=== PATIENT | male | born 1975 | race Caucasian/White ===

== ENCOUNTER 2021-06-28 11:02 | Emergency (ER) | payer BC ==
[~2021-06-28] VITALS: Ht 170.2 cm; Wt 90.7 kg
[2021-06-28] MEDS ORDERED: PREDNISONE20 MG PO (13:13)
[2021-06-28] MEDS ORDERED: ZITHROMAX250 MG PO (13:13)
--- NOTE | 2021-06-28 16:58 | EKG ---
[facility] [address] [facility] [place], [place] [address] Signed Normal sinus rhythm Normal ECG No previous ECGs available Confirmed by SANG MIKE DO ([id number]) on 06/28/2021 4:58:07 PM Electronically Signed By: SANG MIKE DO 06/28/21 1658 PATIENT NAME: JEREMY GODINEZ Kimberly Electrocardiogram DATE OF : 77 PHYSICIAN: SANG MIKE DO REPORT #: [id number] REPORT IS CONFIDENTIAL AND NOT TO BE RELEASED WITHOUT AUTHORIZATION
== END 2021-06-28 13:30 | disposition home or self-care (01) ==
LOC: ED 11:02
DX: J44.1 Chronic obstructive pulmonary disease with (acute) exacerbation (principal); J44.0 Chronic obstructive pulmonary disease with (acute) lower respiratory infection; J20.8 Acute bronchitis due to other specified organisms; Z20.822 Contact with and (suspected) exposure to COVID-19
CPT/HCPCS: 71045; 80053; 83735; 84484; 85025; 93005; 93010; 94640; 94664; 99284-25; 99406; C9803; U0003

== ENCOUNTER 2024-01-10 06:53 | Emergency (ER) | payer BC ==
[~2024-01-10] VITALS: Ht 170.2 cm; Wt 87.1 kg
[~2024-01-10 06:53] MED LIST: PREDNISONE20 MG PO; ZITHROMAX250 MG PO
[2024-01-10 07:56] LABS: BASOPHILS 0.6 % (0-2); EOSINOPHILS 0.9 % (0-6); HEMATOCRIT 49.1 % (35.0-50.0); HEMOGLOBIN 16.7 g/dL (12.0-18.0); LYMPHOCYTES 5.7 % (24-44); MCH 32.9 (27-36); MCV 96.8 fl (81-99); MONOCYTES 7.7 % (0-12); NEUTROPHILS 85.1 % (39-80); PLATELET COUNT 261 K/uL (140-440); RBC 5.07 M/ul (4.3-5.7); RDW 14.6 (10.5-15.0)
[2024-01-10 08:11] LABS: ALBUMIN 3.5 g/dL (3.4-5.0); ALBUMIN/GLOBULIN RATIO 0.95 (1.1-2.4); BILIRUBIN, TOTAL 0.4 ng/dL (0.2-1.0); BUN/CREATININE RATIO 13.33 (6.0-28.6); CALCIUM 8.6 mg/dL (8.5-10.1); CREATININE, SERUM 0.9 mg/dL (0.70-1.30); PROTEIN, TOTAL 7.2 g/dL (6.4-8.2)
[2024-01-10 08:36] LABS: BILIRUBIN, URINE POSITIVE (negative); BLOOD/HGB, URINE NEGATIVE (Negative); KETONE, URINE SMALL (Negative); LEUK ESTERASE, URINE NEGATIVE (negative); NITRITE, URINE NEGATIVE (negative); PH, URINE 5.5 (5-7)
[2024-01-10 09:16] LABS: ABO O; ANTIBODY SCREEN NEGATIVE; RH POSITIVE
[2024-01-10] MEDS ORDERED: SODIUM CHLORIDE 0.9% 1,000 ML IV PRN (10:15)
[2024-01-10] MEDS ORDERED: KETOROLAC TROMETHAMINE 30 MG/ML VIAL IV ONE (10:15)
[2024-01-10] MEDS ORDERED: ACETAMINOPHEN 500 MG TAB PO ONE (12:15)
--- NOTE | 2024-01-12 12:16 | CONS ---
[facility] [address] [place], [place] [address] Signed DATE OF CONSULTATION: 01/10/2024 TIME: 12:50 p.m. PROBLEM: Left lower abdominal pain, incidental findings of large right inguinal hernia, left inguinal hernia and questionable cecal mass. 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 He lives with his daughter, who has recently left the home. He presented to the emergency room with complaints of left lower abdominal pain. He was evaluated by Dr. Willard and the evaluation included CBC and Chem profile, both of which were normal. A CT scan was performed, which showed no evidence of acute diverticulitis as was possibly suspected. He additionally was found to have a rather massive right inguinal hernia and a smaller left inguinal hernia. Notably, small bowel extends into the right hemiscrotum. Additionally, he was found to have questionable filling defect in the cecal area on the right side. It is uncertain if this may represent stool or other finding. I was asked to consult on that basis. PAST MEDICAL HISTORY: Unremarkable as regards abdominal surgery or other issues. He has had right knee surgery that did not include joint replacement. REVIEW OF SYSTEMS: He denies any shortness of breath or chest pain. His left lower abdominal pain has largely resolved. He has had no nausea or vomiting. PHYSICAL EXAMINATION: GENERAL: Pleasant white man who does not look to be in distress at this time. NECK: Trachea is midline. CHEST: Clear. HEART: Regular without murmur. ABDOMEN: Nondistended. There is an impressively large right inguinal hernia extending into the right hemiscrotum. It is not reducible, but it is not tender. Left groin anatomy is obscured by the size of the right-sided scrotal hernia. Abdominal palpation shows no signs of ascites or focal mass or tenderness. EXTREMITIES: Show no clubbing, cyanosis, or edema. White count is normal. He is not anemic. ASSESSMENT: The three issues of note for him at present are the rather large incarcerated right Electronically Signed By: GILES ESCOBAR MD 01/12/24 1216 PATIENT NAME: JEREMY GODINEZ CONSULTATION DATE OF : 77 REPORT #: [id number] PHYSICIAN: GILES ESCOBAR MD PCP: NO PRIMARY CARE PHYSICIAN REPORT IS CONFIDENTIAL AND NOT TO BE RELEASED WITHOUT AUTHORIZATION [facility] [address] [place], [place] [address] Signed inguinal hernia extending into the hemiscrotum. He has no evidence of obstruction and is certainly aware of the hernia and its need for repair. Additionally, the left inguinal hernia which is relatively occult clinically was noted and preserved with tension as well. Concurrent repair of these two hernias would not be generally advisable. The right-sided hernia is rather significant and would be enough on its own for repair. Additionally, regarding the cecal abnormality, my review of the images does show an unusual appearance. This still may represent stool or other nonneoplastic process. He does prefer to go home, although admission to the hospital and management of any of the aforementioned findings could be undertaken. He will call my office on Saturday. If he should have worsening symptoms of his left lower abdominal pain, which at present are not well explained by any particular findings, he will let us know sooner. Giles Escobar MD JM/MODL /[id number] cc: Giles Willard MD Copies: ~ Electronically Signed By: GILES ESCOBAR MD 01/12/24 1216 PATIENT NAME: JEREMY GODINEZ CONSULTATION DATE OF : 77 REPORT #: [id number] PHYSICIAN: GILES ESCOBAR MD PCP: NO PRIMARY CARE PHYSICIAN REPORT IS CONFIDENTIAL AND NOT TO BE RELEASED WITHOUT AUTHORIZATION
== END 2024-01-10 13:40 | disposition home or self-care (01) ==
LOC: ED 06:53
PROVIDERS: Emergency Medicine
DX: K52.9 Noninfective gastroenteritis and colitis, unspecified (principal); K63.89 Other specified diseases of intestine
CPT/HCPCS: 36415; 74177; 80053; 81003; 83735; 85025; 86850; 86900; 86901; 96361; 99284-25; A9270; J1885; J7030; Q9967

== ENCOUNTER 2024-04-02 10:58 | Day surgery (SDC) | payer BC ==
[~2024-04-02] VITALS: Ht 170.2 cm; Wt 90.9 kg
[~2024-04-02 10:58] MED LIST changes: +IBLOOD GLUCOSE TEST STRIP 1 EA TEST VI PRN; +LACTATED RINGER'S 1,000 ML IV SCH; +LIDOCAINE HCL 1% 5 ML SDV INJ ONE; +MIDAZOLAM HCL 5 MG/5 ML VIAL IV PRN; +fentaNYL citrate 100 MCG/2 ML VIAL IV PRN
[2024-04-02 11:47] VITALS: BP 165/113
[2024-04-02] MEDS ORDERED: MIDAZOLAM HCL 5 MG/5 ML VIAL ONE (12:42)
[2024-04-02] MEDS ORDERED: fentaNYL citrate 100 MCG/2 ML VIAL ONE (12:42)
--- NOTE | 2024-04-02 13:33 | NUR ---
04/02/24 Lyudmila3 Demetrius Wood 1324: PT ARRIVED TO PACU VIA STRETCHER. PT AWAKE AND TALKING UPON ARRIVAL. PT HAS NO COMPLAINTS OF NAUSEA OR PAIN. 1326: PT TITRATED TO ROOM AIR AT THIS TIME.
[2024-04-02 13:46] VITALS: BP 152/101
--- NOTE | 2024-04-04 09:47 | OR ---
[facility] [address] [place], [place] [address] Signed DATE OF OPERATION: 04/02/2024 SURGEON: Giles Escobar MD PREOPERATIVE DIAGNOSES: 1. Abnormal appearing CT scan (questionable cecal mass). 2. Large right inguinal hernia. POSTOPERATIVE DIAGNOSES: 1. Cecal diverticulosis and scattered diverticula elsewhere. 2. Polyp of sigmoid (excised). PROCEDURE: Total colonoscopy to cecum with cold snare polypectomy x1. ANESTHESIA: Intravenous sedation fentanyl 200 mcg and Versed 10 mg. INDICATION: This 48-year-old white man has no primary care physician. He presented to the emergency room several weeks ago with complaints of abdominal pain. He was found on CT scan to have what was thought to be a filling defect of the cecum consistent with a cecal mass. Consultations undertaken on that basis. He was additionally noted to have a mass of enlarged right inguinal hernia, which no doubt accounts for his symptoms. He is admitted at this time to undergo colonoscopy, anticipating right inguinal hernia repair at the end of April. The patient was incidentally found to have significant hypertension today and will be prescribed lisinopril for management. His blood pressure was well controlled after sedation it is noted. The patient understands the risk of colonoscopy including but not limited to bleeding, infection, and perforation and wished to proceed. FINDINGS: The prep was good. Complete colonoscopy was undertaken of the cecum. Full intubation of the cecum was accomplished. There was no sign of mass of the cecum. He did have extensive diverticular changes of the cecum itself as well as scattered diverticula throughout. He additionally had a polyp in the sigmoid, which was excised with cold snare technique. This was located at 30 cm from the anal verge upon withdrawal of scope. Electronically Signed By: GILES ESCOBAR MD 04/04/24 0947 PATIENT NAME: JEREMY GODINEZ OPERATIVE REPORT DATE OF : 77 REPORT #: [id number] PHYSICIAN: GILES ESCOBAR MD PCP: NO PRIMARY CARE PHYSICIAN REPORT IS CONFIDENTIAL AND NOT TO BE RELEASED WITHOUT AUTHORIZATION [facility] [address] [place], [place] [address] Signed PROCEDURE IN DETAIL: The patient was brought to the endoscopy suite and placed in lateral decubitus position, given intravenous sedation to the point of slurred speech and nystagmus. Full cardiopulmonary monitoring was maintained. His blood pressure went from 181 systolic to 143 systolic with IV sedation. Digital rectal examination was performed, which was normal. An Olympus video colonoscope was passed in the rectum and manipulated throughout the colon. Diverticula were seen throughout the colon, but not intensely involved in any segment particularly. Scope was ultimately advanced to the cecum. There were multiple small diverticula of the cecum itself, but no actual cecal mass. Abdominal wall palpation confirmed the position of the scope in the cecum and visualization of the ileocecal valve was notable as well. The scope was withdrawn from that point and examination throughout showed no sign of abnormality until approximately 30 cm from the anal verge, where an adenomatous appearing sessile polyp was noted. This was excised with cold snare technique and passed for pathology. The mucosal defect was secured with a hemoclip, though there was no significant bleeding otherwise. The scope was further withdrawn. There were no other findings of concern. The patient was taken to the recovery room in good condition. CONCLUDING DIAGNOSES: 1. Polyps x1 at 30 cm, excised. 2. Extensive diverticular disease, particularly at cecum. No evidence of cecal mass. PLAN: We will initiate lisinopril 10 mg daily for blood pressure control method. He will return to the day surgery area in a week or so and have a random blood pressure check at that time. Additionally, surgical intervention for right inguinal hernia is planned for the end of the month. MD TORRIE Wolfe/MODL /[id number] Electronically Signed By: GILES ESCOBAR MD 04/04/24 0947 PATIENT NAME: JEREMY GODINEZ OPERATIVE REPORT DATE OF : [birth year] REPORT #: [id number] PHYSICIAN: GILES ESCOBAR MD PCP: NO PRIMARY CARE PHYSICIAN REPORT IS CONFIDENTIAL AND NOT TO BE RELEASED WITHOUT AUTHORIZATION [facility] [address] [place] [id number] Signed Copies: ~ Electronically Signed By: GILES ESCOBAR MD 04/04/24 0947 PATIENT NAME: JEREMY GODINEZ OPERATIVE REPORT DATE OF : [birth year] REPORT #: [id number] PHYSICIAN: GILES ESCOBAR MD PCP: NO PRIMARY CARE PHYSICIAN REPORT IS CONFIDENTIAL AND NOT TO BE RELEASED WITHOUT AUTHORIZATION
--- NOTE | 2024-04-06 17:01 | PATH ---
[facility] [address] [facility] [place] [place] [address] Signed SPECIMEN(S): A COLON POLYP, 30 CM SPECIMEN SOURCE: A. COLON POLYP, 30 CM CLINICAL HISTORY: bloody stools and abdominal pain FINAL PATHOLOGIC DIAGNOSIS: Colon polyp at 30 cm: - Polypoid colonic mucosa with slight hyperplastic features (two fragments). JVR:clv MICROSCOPIC EXAMINATION: Histologic sections of all submitted blocks are examined by light microscopy. These findings, together with the gross examination, support the pathologic diagnosis. GROSS DESCRIPTION: The specimen, labeled and designated "Hilary, colon polyp at 30 cm," is received in formalin and consists of one jones soft tissue fragment, 1.1 cm. Specimen is bisected and entirely submitted in (A1). JS (under the direct supervision of a pathologist) The Gross Description was prepared using a voice recognition system. The report was reviewed for accuracy; however, sound-alike word errors, addition and/or deletions may occur. If there is any question about this report, please contact Client Services. PERFORMING LABORATORY: Technical component was performed by [facility], [address] [place] [id number] (CLIA# [id number]). Professional interpretation was performed by [facility], [address] [place] [id number] (CLIA#: [id number]). Diagnostician: Sacha Munoz MD Pathologist Electronically Signed 04/06/2024 Copies: PATIENT NAME: JEREMY GODINEZ PATHOLOGY DATE OF : [birth year] REPORT #: [id number] PHYSICIAN: [facility] PCP: NO PRIMARY CARE PHYSICIAN REPORT IS CONFIDENTIAL AND NOT TO BE RELEASED WITHOUT AUTHORIZATION [address] [address] Signed ~ PATIENT NAME: JEREMY GODINEZ PATHOLOGY DATE OF : [birth year] REPORT #: [id number] PHYSICIAN: [facility] PCP: NO PRIMARY CARE PHYSICIAN REPORT IS CONFIDENTIAL AND NOT TO BE RELEASED WITHOUT AUTHORIZATION
== END 2024-04-02 13:55 | disposition home or self-care (01) ==
LOC: DS 10:58 → OPS 10:58 → DS 11:00 → OPS 12:00
PROVIDERS: ATTEND Surgery
PROC: 0DBE8ZX Excision of Large Intestine, Via Natural or Artificial Opening Endoscopic, Diagnostic (ICD-10-PCS; principal; 2024-04-02 12:00)
DX: K63.5 Polyp of colon (principal); K57.30 Diverticulosis of large intestine without perforation or abscess without bleeding; F17.210 Nicotine dependence, cigarettes, uncomplicated; K44.9 Diaphragmatic hernia without obstruction or gangrene
CPT/HCPCS: 99153; G0500; J2250; J3010; J7121

== ENCOUNTER 2024-04-23 05:55 | Day surgery (SDC) | payer BC ==
[2024-04-02 12:28] VITALS: BP 165/113
[~2024-04-23] VITALS: Ht 170.2 cm; Wt 90.9 kg
[~2024-04-23 05:55] MED LIST changes: -IBLOOD GLUCOSE TEST STRIP 1 EA TEST VI PRN; -LIDOCAINE HCL 1% 5 ML SDV INJ ONE; -MIDAZOLAM HCL 5 MG/5 ML VIAL IV PRN; -fentaNYL citrate 100 MCG/2 ML VIAL IV PRN
[2024-04-23 06:07] VITALS: BP 123/91
[2024-04-23] MEDS ORDERED: LISINOPRIL10 MG PO (06:15)
[2024-04-23] MEDS ORDERED: BUPIVACAINE HCL 0.25% 30 ML SDV ONE (06:48)
[2024-04-23] MEDS ORDERED: HEParin SOD (PORCINE) 5,000 UNIT/0.5 ML SYR SUB-Q SCH (07:00)
[2024-04-23] MEDS ORDERED: IBLOOD GLUCOSE TEST STRIP 1 EA TEST VI PRN ×2 (07:00→08:30)
[2024-04-23] MEDS ORDERED: LIDOCAINE HCL 1% 5 ML SDV INJ ONE (07:00)
[2024-04-23] MEDS ORDERED: CEFAZOLIN SODIUM 2 GM/20 ML SYR IV SCH (07:00)
[2024-04-23] MEDS ORDERED: propofoL 200 MG/20 ML VIAL ONE (07:13)
[2024-04-23] MEDS ORDERED: Ropivacaine HCl 0.5% 30 ML VIAL ONE (07:13)
[2024-04-23] MEDS ORDERED: ondansetron HCL 4 MG/2 ML VIAL ONE (07:13)
[2024-04-23] MEDS ORDERED: MIDAZOLAM HCL 2 MG/2 ML VIAL ONE (07:13)
[2024-04-23] MEDS ORDERED: LIDOCAINE HCL 2% 20 MG/ML VIAL INJ ONE ×2 (07:13→11:03)
[2024-04-23] MEDS ORDERED: DEXAMETHASONE SOD PHOS 4 MG/ML VIAL ONE ×3 (07:13→11:01)
[2024-04-23] MEDS ORDERED: fentaNYL citrate 100 MCG/2 ML VIAL ONE ×2 (07:13→13:00)
[2024-04-23] MEDS ORDERED: ACETAMINOPHEN 1,000 MG/100 ML VIAL ONE (07:13)
[2024-04-23] MEDS ORDERED: dexmedeTOMIDine HCl 200 MCG/2 ML VIAL ONE ×2 (07:14→11:30)
[2024-04-23] MEDS ORDERED: ROCURONIUM BROMIDE 50 MG/5 ML SYR ONE ×2 (07:41→08:39)
[2024-04-23] MEDS ORDERED: SUGAMMADEX SODIUM 200 MG/2 ML ML ONE (07:41)
[2024-04-23] MEDS ORDERED: ePHEDrine sulfate 50 MG/ML AMP ONE (08:25)
[2024-04-23] MEDS ORDERED: HYDROmorphone HCL 1 MG/ML SYR IV PRN (08:30)
[2024-04-23] MEDS ORDERED: fentaNYL citrate 50 MCG/ML SDV IV PRN (08:30)
[2024-04-23] MEDS ORDERED: PROCHLORPERAZINE EDISYLATE 10 MG/2 ML VIAL IV PRN (08:30)
[2024-04-23] MEDS ORDERED: ondansetron HCL 4 MG/2 ML VIAL IV PRN (08:30)
[2024-04-23] MEDS ORDERED: NALOXONE HCL 0.4 MG SYR IV PRN ×2 (08:30→10:30)
[2024-04-23] MEDS ORDERED: droPERidol 5 MG/2 ML VIAL IV PRN (08:30)
[2024-04-23] MEDS ORDERED: LACTATED RINGER'S 1,000 ML IV ONE ×2 (08:44→11:43)
[2024-04-23] MEDS ORDERED: IBUPROFEN 600 MG TAB PO PRN (10:30)
[2024-04-23] MEDS ORDERED: ACETAMINOPHEN 500 MG TAB PO PRN (10:30)
[2024-04-23] MEDS ORDERED: OXYCODONE/APAP 7.5/325 TAB PO PRN (10:30)
[2024-04-23] MEDS ORDERED: LACTATED RINGER'S 1,000 ML IV SCH (10:30)
[2024-04-23] MEDS ORDERED: TYLENOL EXTRA500 MG PO (10:31)
[2024-04-23] MEDS ORDERED: MOTRIN IB200 MG PO (10:32)
[2024-04-23] MEDS ORDERED: PERCOCET 7.5-31 EACH PO (10:32)
[2024-04-23] MEDS ORDERED: KETOROLAC TROMETHAMINE 30 MG/ML VIAL IV ONE (10:45)
[2024-04-23] MEDS ORDERED: KETAMINE in NS 50 MG/5 ML SYR ONE (11:04)
[2024-04-23 11:08] VITALS: BP 160/92
--- NOTE | 2024-04-23 11:18 | NUR ---
1110 PT ARRIVED TO DAY SONNY LEWIS FROM PACU. REPORT TAKEN FROM CHELSEY Chamberlain RN. PT AWAKE AND ORIENTED. PT REPORTS NO NAUSEA, 3/10 TOLERABLE PAIN. PT HAS PILI DRAIN ON ABDOMEN. PT DRINKING WATER AND TOLERATING WELL. VITALS TAKEN. IV ASSESSED. PT ON 2L OXYGEN VIA NASAL CANULLA 1119 PT TOLERATING PO PUDDING WELL. PT HAS CALL LIGHT WITHIN REACH, AND BED LOW AND LOCKED.
--- NOTE | 2024-04-23 11:25 | NUR ---
04/23/24 1125 Sheets,Caryl 1002 PT ARRIVED TO PACU ON 6L VIA MASK AND ORAL AIRWAY IN PLACE.
[2024-04-23] MEDS ORDERED: KETOROLAC TROMETHAMINE 30 MG/ML VIAL ONE (11:37)
--- NOTE | 2024-04-23 11:37 | NUR ---
1134 PT RESTING AT 97% OXYGEN SATURATION. OXYGEN LOWERED TO 1 LPM VIA NASAL CANULLA. PT STAYING AT 97%. CONTINOUS PLUSE OX LEFT IN PLACE.
--- NOTE | 2024-04-23 11:59 | NUR ---
1158 PT AT 96% ON 1 L OXYGEN VIA NASAL CANULLA. REMOVED PT OF OF OXYGEN AND PT AT 98% OXYGEN SATURATION ON RA. CONTINOUS PLUSE OX IN PLACE TO MONITOR.
[2024-04-23 12:06] VITALS: BP 171/89
--- NOTE | 2024-04-23 12:47 | NUR ---
1150 PT ABLE TO AMBULATE TO BATHROOM AND VOID 400 MLS URINE. 1200 PT DISCHARGE INFORMATION GONE OVER WITH PT. PT HAS NO FURTHER QUESTIONS AT THIS TIME. VITALS TAKEN. PT ABLE TO GET DRESSED ON OWN. 1220 IV DISCONTINUED 1225 PT DISCHARGED FROM [facility] VIA WHEELCHAIR TO THE FRONT OF THE HOSPITAL TO PT DAUGHTERS CAR.
--- NOTE | 2024-04-24 12:44 | OR ---
[facility] [address] [place], [place] [address] Signed DATE OF OPERATION: 04/23/2024 SURGEON: Giles Escobar MD PREOPERATIVE DIAGNOSIS: Incarcerated non-strangulated right inguinal hernia (very large). POSTOPERATIVE DIAGNOSES: 1. Incarcerated non-strangulated right inguinal hernia (very large). 2. Incarcerated viscus essentially all of omentum and small amount of small bowel. PROCEDURES: 1. Repair of incarcerated non-strangulated right inguinal hernia (indirect type), prolonged, complicated and difficult. 2. Implantation of Prolene mesh underlay technique and placement of drain. ANESTHESIA: General endotracheal, Frankie Fuller [employer] and local 10 mL of 0.25% Marcaine with epinephrine as well as preoperative inguinal nerve block. INDICATION: This 48-year-old white man has no primary care physician. He presented to the emergency room with abdominal pain on January 10, 2024, where he was evaluated by Dr. Willard. A CT scan was performed, which showed questionable filling defect in the cecum, but also a very large nonreducible right inguinal hernia and on CT scan a small left inguinal hernia, which was containing fat only. Right inguinal hernia contained some bowel loops. The patient has had no sign of bowel obstruction per se. The patient did undergo colonoscopy by nd which showed no evidence of cecal tumor. No doubt the CT scan was an error and probably had visualized only retained stool. The right inguinal hernia that he has was quite massive and extends well into the right hemiscrotum. It is not reducible. He is here now to undergo repair of the hernia. He understands the risk of bleeding, infection, recurrent nerve injury or defect and need for possible abdominal or scrotal evaluation also. Understanding this, he wished to proceed. FINDINGS: Given the large size of the hernia, a Boyle catheter was anticipated. Given the size of his urethral meatus, a much smaller catheter (10-Algerian) was passed, however, the urine Electronically Signed By: GILES ESCOBAR MD 04/24/24 1244 PATIENT NAME: JEREMY GODINEZ OPERATIVE REPORT DATE OF : [birth year] REPORT #: [id number] PHYSICIAN: GILES ESCOBAR MD PCP: NO PRIMARY CARE PHYSICIAN REPORT IS CONFIDENTIAL AND NOT TO BE RELEASED WITHOUT AUTHORIZATION [facility] [address] [place], [place] [address] Signed was not forthcoming upon passage of the catheter despite it being fully inserted. On that basis, it was abandoned. As regard to the hernia, it was completely nonreducible and extended well into the right hemiscrotum. He was ultimately found to have herniated omentum extended down into the hemiscrotum with adherent adhesions to the hernia sac distally. There was a small amount of small bowel as well. The hernia sac itself was not excessively large only 6 cm or so. The neck was about 3 cm in diameter. The floor itself was somewhat attenuated. Repair consisted of isolation of the hernia sac, omentum and small bowel to the peritoneal cavity. High ligation and excision of the hernia sac and implantation of Prolene mesh in an underlay technique. Of special note, a genitofemoral nerve in the floor of the canal was identified and was intentionally excised as the position of the nerve could not be more fully manipulated to a better position to allow a reasonable repair of the hernia. An ilioinguinal nerve branch was identified. Notably adherent to the external oblique fascia externally, ultimately fused with cremasteric muscle fibers. By conclusion complete reduction of the hernia was accomplished as well as repair of the floor. A drain was placed given the extent of dissection and hazard of possible bleeding particularly given extensive mobilization from the scrotum. DESCRIPTION OF PROCEDURE: The patient was brought to the operating room and given a general endotracheal anesthetic. Preoperative antibiotic Ancef was given. Sequential compression device stockings were used and heparin subcutaneously administered. The abdomen was clipped. A nurse attempt at passage of a conventional Boyle catheter was unsuccessful due to small size of urethral meatus. On that basis, I personally attempted passage of a 14-Algerian Boyle catheter, which again was still too large for the urethral meatus size, though there was no distinct scarring or stricture noted. On that basis, a 10-Algerian pediatric catheter was passed without impediment and passed fully would likely be the bladder itself. The urine was not forthcoming despite abdominal palpation of the suprapubic area. The balloon was filled with about 1 mL, but did not engage into the bladder itself and it was replaced by me personally, which appeared to be likely into appropriate position, but still no urine was withdrawn. Under the circumstances, the catheter was removed and a Boyle catheter was not used during the course of operation. The abdomen was then prepared with chlorhexidine solution and draped sterilely. A very large scrotal hernia was not reducible even with relaxation. The scrotum and surrounding area had been prepped during the preparation phase. Electronically Signed By: GILES ESCOBAR MD 04/24/24 1244 PATIENT NAME: JEREMY GODINEZ OPERATIVE REPORT DATE OF : [birth year] REPORT #: [id number] PHYSICIAN: GILES ESCOBAR MD PCP: NO PRIMARY CARE PHYSICIAN REPORT IS CONFIDENTIAL AND NOT TO BE RELEASED WITHOUT AUTHORIZATION [facility] [address] [place], [place] [address] Signed An incision was made in the right inguinal area along the line of skin tension. Dissection was carried through the subcutaneous tissue with electrocautery. Superficial inferior epigastric vessels were secured with 3-0 Vicryl ties and divided. The external oblique was quite markedly attenuated from a very massive hernia extending from the right lower abdomen into the right hemiscrotum. Notable was an ilioinguinal nerve branch, which was outside the external oblique and coursed through it and penetrating it to hopefully reduce the cremasteric muscle fibers of the cord. The external oblique was incised along its fibers, along with the nerve and allowed to remain in place as much as possible. The external oblique was retracted medially and laterally and the very thickened cord structures were examined fully. Impressive hypertrophy of the cremasteric muscle fibers of the cord was noted. I suspect this is in relation to the long-standing nature of his right groin hernia. The bulky hernia was carefully manipulated and freed from the surrounding external oblique fascia with blunt and electrocautery dissection ultimately allowing it to be encircled with a Joseph drain. It appeared to be densely tethered to the depths of the right hemiscrotum. The cremasteric muscle fibers anteriorly on the cord were incised with electrocautery with care taken to maintain good hemostasis. The external spermatic fascia and subsequently internal spermatic fascia was similarly divided revealing an area consistent with indirect hernia sac. This was incised and found within the hernia sac was actually fat consistent with omentum. The hernia sac was incised more fully allowing for withdrawal of omentum which was densely adherent to the depths of the hemiscrotum. An impressive amount of omentum was incarcerated and only a small amount of small bowel more proximally was noted. The invagination of the right hemiscrotum allowed for division of adhesions of omentum to the hernia sac distally. Ultimately, the hernia sac was transected transversely and the omentum fully withdrawn as were small bowel loops to a small degree. Photograph was taken. The omentum and abdominal contents were replaced into the abdominal cavity. Examination of the hernia sac was undertaken, although the aperture through which the omentum had herniated was about 3 cm. The extent of the hernia sac was relatively long extending down into the right hemiscrotum. This was dissected free from the cord structures with meticulous care preserving the cord structures. The distal hernia sac was left in situ. Once the hernia sac was well developed and defined, the floor of the canal was examined and attenuated. The inferior epigastric vessels were easily identified. The hernia sac was oversewn with running 2-0 silk suture doubly applied and under direct visualization allowing for complete reduction of herniated small bowel and omentum. Redundant hernia sac was passed for pathology. Plans were made for repair of the floor itself. An Allis clamp was applied to the tendon of the transversus abdominis and the attenuated fibers of the fascia of the Electronically Signed By: GILES ESCOBAR MD 04/24/24 1244 PATIENT NAME: JEREMY GODINEZ OPERATIVE REPORT DATE OF : 77 REPORT #: [id number] PHYSICIAN: GILES ESCOBAR MD PCP: NO PRIMARY CARE PHYSICIAN REPORT IS CONFIDENTIAL AND NOT TO BE RELEASED WITHOUT AUTHORIZATION [address] [address] Signed transversalis were incised with electrocautery. The properitoneal fat was bluntly . Noted in the floor was a genitofemoral nerve, which was relatively large and somewhat aberrantly in position at this point. It extended from the depths of the properitoneal space, not far from the cord and was draped over the floor and over the ileopubic tract extending to the medial thigh. This was in a position that repair and avoidance of entrapment to this nerve would be unlikely. On that basis, the nerve was intentionally excised securing its origin with a 3-0 Vicryl tie. A segment of Prolene mesh was cut to an elliptical configuration and secured in an underlay technique in the properitoneal space. This secured laterally to the shelving edge of Poupart's ligament and medially to the tendon of the transversus abdominis. A defect was cut in the graft to accommodate the cord. The tails of the graft were secured laterally with all due care. Irrigation was undertaken. There was oozing of blood from divided cremasteric muscle fiber as well as soft tissue of the right hemiscrotum. This was secured with electrocautery and oversewn with 3-0 Vicryl suture. Given the extent of dissection, the dense adherence to the right hemiscrotum was deemed advisable to place a drain for postoperative management and swelling that might be expected. Ginger hemostatic agent was applied to the raw surfaces after hemostasis was considered complete. The drain extended at the side of the external oblique and down into the right hemiscrotum. Closure of the external oblique was with running 0 Vicryl suture without entrapment of underlying cord structures. Suzanna's layer was reapproximated with interrupted 2-0 Vicryl and 10 mL of 0.25% Marcaine with epinephrine injected locally in the skin level. The skin was then closed with running subcuticular 3-0 Vicryl. Steri-Strips were applied as was an Acticoat dressing. The patient tolerated the procedure well. Blood loss was certainly less than 10 mL. The operation was rather prolonged, complicated, and difficult lasting three times longer than usual. MD TORRIE Wolfe/MODL /[id number] cc: Giles Willard MD Electronically Signed By: GILES ESCOBAR MD 04/24/24 1244 PATIENT NAME: JEREMY GODINEZ OPERATIVE REPORT DATE OF : [birth year] REPORT #: [id number] PHYSICIAN: GILES ESCOBAR MD PCP: NO PRIMARY CARE PHYSICIAN REPORT IS CONFIDENTIAL AND NOT TO BE RELEASED WITHOUT AUTHORIZATION [address] [address] Signed Copies: ~ Electronically Signed By: GILES ESCOBAR MD 04/24/24 1244 PATIENT NAME: JEREMY GODINEZ OPERATIVE REPORT DATE OF : 77 REPORT #: [id number] PHYSICIAN: GILES ESCOBAR MD PCP: NO PRIMARY CARE PHYSICIAN REPORT IS CONFIDENTIAL AND NOT TO BE RELEASED WITHOUT AUTHORIZATION
--- NOTE | 2024-04-29 11:03 | PATH ---
[facility] [address] [place], [place] [address] Signed SPECIMEN(S): A RIGHT INDIRECT HERNIA SAC SPECIMEN SOURCE: A. RIGHT INDIRECT HERNIA SAC CLINICAL HISTORY: Right inguinal hernia (incarcerated). FINAL PATHOLOGIC DIAGNOSIS: Right indirect hernia sac: - Mesothelial lined fibrofatty tissue consistent with hernia sac. - Negative for inflammation or atypia. NA MICROSCOPIC EXAMINATION: Histologic sections of all submitted blocks are examined by light microscopy. These findings, together with the gross examination, support the pathologic diagnosis. GROSS DESCRIPTION: The specimen, labeled and designated "Aalbers, B, " and designated on the requisition "right indirect hernia sac," is received in formalin and consists of 4.6 x 4.1 x 1.4 cm pink membranous saclike structure. The external surface is pink and shaggy. The inner lining is red and roughened. Director Insurance sections are submitted in (A1). FB (under the direct supervision of a pathologist) The Gross Description was prepared using a voice recognition system. The report was reviewed for accuracy; however, sound-alike word errors, addition and/or deletions may occur. If there is any question about this report, please contact Client Services. ADDITIONAL NOTES: Immunohistochemical and/or in situ hybridization studies if performed in this case included appropriate positive controls that reacted as expected. This test was developed and its performance characteristics determined by [facility]. It has not been cleared or approved by the U.S. Food and Drug Administration. The FDA has determined that such clearance or approval is not necessary. This test is used for clinical purposes. It should not be regarded as investigational or for research. [facility] is certified under the Clinical Laboratory Improvement PATIENT NAME: JEREMY GODINEZ PATHOLOGY DATE OF : 77 REPORT #: [id number] PHYSICIAN: [facility] PCP: NO PRIMARY CARE PHYSICIAN REPORT IS CONFIDENTIAL AND NOT TO BE RELEASED WITHOUT AUTHORIZATION [facility] [address] [place], [place] [address] Signed Amendments of 1988 (CLIA) as qualified to perform high complexity clinical laboratory testing. PERFORMING LABORATORY: Technical component was performed by [facility], [address] [place] [address] (CLIA# [id number]). Professional interpretation was performed by [facility], [address] [place] [address] (CLIA#: [id number]). Diagnostician: Anitha Glez MD Pathologist Electronically Signed 04/29/2024 Copies: ~ PATIENT NAME: JEREMY GODINEZ PATHOLOGY DATE OF : 77 REPORT #: [id number] PHYSICIAN: [facility] PCP: NO PRIMARY CARE PHYSICIAN REPORT IS CONFIDENTIAL AND NOT TO BE RELEASED WITHOUT AUTHORIZATION
== END 2024-04-23 12:25 | disposition home or self-care (01) ==
LOC: DS 05:55
PROVIDERS: ATTEND Surgery
PROC: 0YU50JZ Supplement Right Inguinal Region with Synthetic Substitute, Open Approach (ICD-10-PCS; principal; 2024-04-23 07:30)
DX: K40.30 Unilateral inguinal hernia, with obstruction, without gangrene, not specified as recurrent (principal); K66.0 Peritoneal adhesions (postprocedural) (postinfection); F17.210 Nicotine dependence, cigarettes, uncomplicated
CPT/HCPCS: 00830; 64425; 76942; C1781; J0131; J0690; J1100; J1170; J1644; J1885; J2250; J2405; J2704; J2795; J3010; J3490; J7121

== ENCOUNTER 2024-08-10 14:52 | Emergency (ER) | payer BC ==
[~2024-08-10] VITALS: Ht 170.2 cm; Wt 72.4 kg
[~2024-08-10 14:52] MED LIST changes: -LACTATED RINGER'S 1,000 ML IV SCH; +LISINOPRIL10 MG PO; +MOTRIN IB200 MG PO; +PERCOCET 7.5-31 EACH PO; +TYLENOL EXTRA500 MG PO
[2024-08-10] MEDS ORDERED: ALBUTEROL/IPRATROPIUM 3 ML NEB INH PRN (15:15)
[2024-08-10 15:18] LABS: BASOPHILS 0.9 % (0-2); EOSINOPHILS 0.2 % (0-6); HEMATOCRIT 47.8 % (35.0-50.0); HEMOGLOBIN 16.8 g/dL (12.0-18.0); LYMPHOCYTES 17.7 % (24-44); MCH 34.7 (27-36); MCHC 35.1 g/dl (30-36); MONOCYTES 7.3 % (0-12); NEUTROPHILS 73.9 % (39-80); PLATELET COUNT 251 K/uL (140-440); RBC 4.83 M/ul (4.3-5.7); RDW 13.6 (10.5-15.0)
[2024-08-10 15:34] LABS: ALBUMIN 3.7 g/dL (3.4-5.0); ANION GAP 14.2 (7-21); BILIRUBIN, TOTAL 0.7 ng/dL (0.2-1.0); BUN/CREATININE RATIO 23.07 (6.0-28.6); CALCIUM 8.9 mg/dL (8.5-10.1); CREATININE, SERUM 0.78 mg/dL (0.70-1.30); MAGNESIUM 1.4 mg/dL (1.8-2.4); POTASSIUM 3.2 mmol/L (3.5-5.1); PROTEIN, TOTAL 7.4 g/dL (6.4-8.2)
[2024-08-10] MEDS ORDERED: LISINOPRIL10 MG PO (15:55)
[2024-08-10] MEDS ORDERED: MAGNESIUM400 M1 PO (15:55)
[2024-08-10] MEDS ORDERED: MULTIVITAMIN1 EACH PO (15:55)
[2024-08-10] MEDS ORDERED: VENTOLIN HFA18 GM INH (15:58)
[2024-08-10 16:10] VITALS: BP 101/86
--- NOTE | 2024-08-10 22:37 | EKG ---
[facility] [address] [facility] [place] [address] Signed Sinus tachycardia Otherwise normal ECG When compared with ECG of 02-APR-2024 11:10, No significant change was found Confirmed by Roya De La Cruz MD () on 08/10/2024 10:36:49 PM Electronically Signed By: ROYA DE LA CRUZ MD 08/10/24 2237 PATIENT NAME: SVITLANA GODINEZAmy Harris Electrocardiogram DATE OF : 77 PHYSICIAN: ROYA DE LA CRUZ MD REPORT #: [id number] REPORT IS CONFIDENTIAL AND NOT TO BE RELEASED WITHOUT AUTHORIZATION
== END 2024-08-10 16:12 | disposition home or self-care (01) ==
LOC: ED 14:52
PROVIDERS: Emergency Medicine
DX: J40 Bronchitis, not specified as acute or chronic (principal); F10.90 Alcohol use, unspecified, uncomplicated; I10 Essential (primary) hypertension; F17.200 Nicotine dependence, unspecified, uncomplicated
CPT/HCPCS: 36415; 71045; 80053; 83735; 84484; 85025; 93005; 93010; 94640; 99285-25

== ENCOUNTER 2024-10-29 19:19 | Emergency (ER) | payer BC ==
[~2024-10-29] VITALS: Ht 170.2 cm; Wt 90.0 kg
[~2024-10-29 19:19] MED LIST changes: +MAGNESIUM400 M1 PO; +MULTIVITAMIN1 EACH PO; +VENTOLIN HFA18 GM INH
[2024-10-29] MEDS ORDERED: methylPREDNISolone SOD SUCC 125 MG/2 ML VIAL IV ONE (19:30)
[2024-10-29] MEDS ORDERED: ALBUTEROL/IPRATROPIUM 3 ML NEB INH ONE (19:30)
[2024-10-29 19:32] LABS: PH, VENOUS 7.402 (7.31-7.41)
[2024-10-29 19:36] LABS: BASOPHILS 0.2 % (0-2); EOSINOPHILS 0.1 % (0-6); HEMATOCRIT 52.9 % (35.0-50.0); HEMOGLOBIN 18.8 g/dL (12.0-18.0); LYMPHOCYTES 20.7 % (24-44); MCH 35.7 (27-36); MCHC 35.7 g/dl (30-36); MCV 100.1 fl (81-99); MONOCYTES 6.9 % (0-12); NEUTROPHILS 72.1 % (39-80); PLATELET COUNT 263 K/uL (140-440); RBC 5.28 M/ul (4.3-5.7); RDW 13.9 (10.5-15.0)
[2024-10-29] MEDS ORDERED: NITROGLYCERIN PACKET TOP ONE (20:00)
[2024-10-29] MEDS ORDERED: MORPHINE SULFATE 4 MG/ML VIAL IV ONE (20:00)
[2024-10-29 20:04] LABS: ALBUMIN 3.2 g/dL (3.4-5.0); ALBUMIN/GLOBULIN RATIO 0.73 (1.1-2.4); ANION GAP 16.2 (7-21); BILIRUBIN, TOTAL 0.6 ng/dL (0.2-1.0); BUN/CREATININE RATIO 14.4 (6.0-28.6); CALCIUM 8.4 mg/dL (8.5-10.1); CREATININE, SERUM 1.18 mg/dL (0.70-1.30); POTASSIUM 4.2 mmol/L (3.5-5.1); PROTEIN, TOTAL 7.6 g/dL (6.4-8.2)
[2024-10-29 20:10] LABS: INFLUENZA B NAA NEGATIVE (NEGATIVE); RESPIRATORY SYNCYTIAL VIR NAA NEGATIVE (NEGATIVE)
[2024-10-29] MEDS ORDERED: ondansetron HCL 4 MG/2 ML VIAL IV ONE (20:15)
[2024-10-29] MEDS ORDERED: methylPREDNISolone 4 MG HOME.PACK PO ONE (21:15)
[2024-10-29] MEDS ORDERED: AZITHROMYCIN 250 MG HOME.PACK PO ONE (21:15)
[2024-10-29] MEDS ORDERED: INHALER, ASSIST DEVICES 1 EACH SPACER MISC ONE (21:30)
[2024-10-29] MEDS ORDERED: ALBUTEROL SULFATE 8 GM HOME.PACK INH ONE (21:30)
[2024-10-29 21:35] VITALS: BP 96/77
--- NOTE | 2024-11-01 12:14 | EKG ---
[facility] [address] [facility] [place] [address] Signed Sinus tachycardia Otherwise normal ECG When compared with ECG of 10-AUG-2024 15:08, No significant change was found Confirmed by Rg Kay MD ([id number]) on 11/01/2024 12:14:36 PM Electronically Signed By: RG KAY DO 11/01/24 1214 PATIENT NAME: JEREMY GODINEZ Electrocardiogram DATE OF : 77 PHYSICIAN: RG KAY DO REPORT #: [id number] REPORT IS CONFIDENTIAL AND NOT TO BE RELEASED WITHOUT AUTHORIZATION
== END 2024-10-29 21:35 | disposition home or self-care (01) ==
LOC: ED 19:19
PROVIDERS: Family Medicine
DX: J44.1 Chronic obstructive pulmonary disease with (acute) exacerbation (principal); I10 Essential (primary) hypertension; F17.200 Nicotine dependence, unspecified, uncomplicated; Z79.899 Other long term (current) drug therapy
CPT/HCPCS: 36415; 71045; 71260; 80053; 82803; 83880; 84484; 85025; 85379; 87502; 93005; 93010; 94640; 99285-25; J2270; J2405; J2919; Q9967; U0002